=== PATIENT | female | born 1965 | race Caucasian/White ===

== ENCOUNTER 2018-06-22 14:15 | Emergency (ER) | payer MEDICAID ==
[~2018-06-22] VITALS: Ht 162.6 cm; Wt 57.1 kg
[~2018-06-22 14:15] MED LIST: BENTYL 20 MG TA20 M1 PO; CARAFATE 1 GM TA1 G1 PO; IBUPROFEN 800800 M1 PO; NORCO 5-325 TA1 EACH PO; PHENERGAN 25 MG25 M1 PO; PRINIVIL20 MG PO; PROTONIX 20 MG20 M1 PO; TIROSINT125 MCG PO; TOPAMAX 100 MG100 MG PO; VITAMIN D3400 UNIT PO; ZOFRAN4 MG PO
[2018-06-22] MEDS ORDERED: NEXIUM40 MG PO (14:49)
[2018-06-22] MEDS ORDERED: COMPAZINE10 MG PO (14:49)
[2018-06-22] MEDS ORDERED: ONDANSETRON HCL4 M2 PO ×2 (14:49→17:24)
[2018-06-22] MEDS ORDERED: AMLODIPINE BESY10 MG PO (14:50)
[2018-06-22] MEDS ORDERED: ZYRTEC10 M4 PO (14:50)
[2018-06-22 15:18] LABS: ABSOLUTE BASOPHILS 0.1 thou/uL (0.0-0.2); ABSOLUTE EOSINOPHILS 0.3 thou/uL (0.0-0.7); ABSOLUTE LYMPHOCYTES 1.6 thou/uL (0.8-5.3); ABSOLUTE MONOCYTES 0.6 thou/uL (0.0-1.2); ABSOLUTE NEUTROPHILS 4.7 thou/uL (1.6-8.1); BASOPHILS 1.2 %; EOSINOPHILS 3.8 %; HEMATOCRIT 29.7 % (37.0-47.0); HEMOGLOBIN 9.4 gm/dL (12.0-15.0); LYMPHOCYTES 21.7 %; MCH 23.9 pg (26.0-34.0); MCHC 31.6 g/dL (28.0-37.0); MCV 75.7 fL (80.0-100.0); MONOCYTES 8.2 %; MPV 8.1 fl. (7.2-11.1); NUCLEATED RBCS 0 /100WBC; POLYS 65.1 %; RBC 3.92 mil/uL (4.20-5.00); RDW-CV 19.2 % (10.5-14.5); WBC 7.3 thou/uL (4.0-11.0)
[2018-06-22 15:21] LABS: ANION GAP 11 mmol/L (7-16); BUN 18 mg/dL (7-18); CALCIUM 8.2 mg/dL (8.5-10.1); CHLORIDE 110 mmol/L (98-107); CO2 21 mmol/L (21-32); CREATININE 0.5 mg/dL (0.6-1.3); GLUCOSE 100 mg/dL (70-99); POTASSIUM 3.7 mmol/L (3.5-5.1); SODIUM 142 mmol/L (136-145)
[2018-06-22 15:32] LABS: ALBUMIN 3.5 g/dL (3.4-5.0); ALKALINE PHOSPHATASE 118 U/L (46-116); LIPASE 193 U/L (73-393); SGOT 13 U/L (15-37); SGPT 16 U/L (30-65); TOTAL BILIRUBIN 0.1 mg/dL (<0.1-1.0); TOTAL PROTEIN 6.7 g/dL (6.4-8.2); TROPONIN-I LEVEL <0.06 ng/mL (<0.06)
[2018-06-22 15:54] LABS: PLATELET COUNT* 208 thou/uL (150-400)
[2018-06-22] MEDS ORDERED: HYDROCODONE-AP1 EAC6 PO (17:23)
[2018-06-22] MEDS ORDERED: CIPRO500 MG PO (17:23)
[2018-06-22 17:48] VITALS: BP 122/69
--- NOTE | 2018-06-23 13:01 | EKG ---
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: : 1965 Requested By: Myra Mtz Order Number: [id number] MD: Peterson Carroll Measurements Intervals [place] Rate: 63 P: 70 WI: 130 QRS: 9 QRSD: 91 T: 23 QT: 439 QTc: 450 Interpretive Statements Sinus rhythm Low voltage, extremity leads Baseline wander in lead(s) III,aVF,V5 Compared to ECG 08/01/2017 12:53:29 T-wave abnormality no longer present Electronically Signed On 06-23-2018 13:01:39 CDT by Peterson Carroll [email or web address] <ELECTRONICALLY SIGNED> By: Peterson Carroll MD, FACC 06/23/18 1301 1520 1520 Peterson Carroll MD, [facility] /EPI
== END 2018-06-22 17:48 | disposition home or self-care (01) ==
LOC: M.ERS 14:15
PROVIDERS: Nurse Practitioner Family
DX: K52.9 Noninfective gastroenteritis and colitis, unspecified (principal); I10 Essential (primary) hypertension; E03.9 Hypothyroidism, unspecified; G43.909 Migraine, unspecified, not intractable, without status migrainosus; Z90.49 Acquired absence of other specified parts of digestive tract; Z90.710 Acquired absence of both cervix and uterus

== ENCOUNTER 2018-08-08 10:31 | Emergency (ER) | payer MEDICARE, MEDICAID ==
[~2018-08-08] VITALS: Ht 162.6 cm; Wt 57.6 kg
[~2018-08-08 10:31] MED LIST changes: +AMLODIPINE BESY10 MG PO; +CIPRO500 MG PO; +COMPAZINE10 MG PO; +HYDROCODONE-AP1 EAC6 PO; +NEXIUM40 MG PO; +ONDANSETRON HCL4 M2 PO; +ZYRTEC10 M4 PO
[2018-08-08] MEDS ORDERED: CENTRUM SILVER1 EAC2 PO (10:45)
[2018-08-08] MEDS ORDERED: POTASSIUM20 PO (10:45)
[2018-08-08 10:47] LABS: URINE BILIRUBIN NEGATIVE (Negative); URINE BLOOD NEGATIVE (Negative); URINE CLARITY CLEAR; URINE COLOR YELLOW; URINE GLUCOSE-RANDOM NEGATIVE (Negative); URINE KETONES NEGATIVE (Negative); URINE NITRITE-REFLEX NEGATIVE (Negative); URINE PROTEIN NEGATIVE (Negative); URINE SPECIFIC GRAVITY 1.025 (1.005-1.030); URINE UROBILINOGEN 0.2 E.U./dl (0.2-1.0)
[2018-08-08 10:50] LABS: URINE LEUKOCYTES-REFLEX 2+ (Negative)
[2018-08-08 11:09] LABS: ABSOLUTE BASOPHILS 0.1 thou/uL (0.0-0.2); ABSOLUTE EOSINOPHILS 0.3 thou/uL (0.0-0.7); ABSOLUTE LYMPHOCYTES 1.4 thou/uL (0.8-5.3); ABSOLUTE MONOCYTES 0.4 thou/uL (0.0-1.2); ABSOLUTE NEUTROPHILS 3.4 thou/uL (1.6-8.1); BASOPHILS 1.1 %; HEMATOCRIT 31.3 % (37.0-47.0); HEMOGLOBIN 9.8 gm/dL (12.0-15.0); LYMPHOCYTES 24.4 %; MCH 22.4 pg (26.0-34.0); MCHC 31.4 g/dL (28.0-37.0); MCV 71.4 fL (80.0-100.0); MONOCYTES 7.9 %; MPV 7.9 fl. (7.2-11.1); NUCLEATED RBCS 0 /100WBC; PLATELET COUNT* 393 thou/uL (150-400); POLYS 60.6 %; RBC 4.38 mil/uL (4.20-5.00); RDW-CV 19.4 % (10.5-14.5); WBC 5.5 thou/uL (4.0-11.0)
[2018-08-08 11:11] LABS: CASTS None Seen /LPF (None Seen); CRYSTALS None Seen /LPF (None Seen); MUCUS >6 Heavy strn/LPF (None Seen); SQUAMOUS 4-10 Moderate /LPF (0-3); URINE RBC 3-10 Few /HPF (0-2); URINE WBC-REFLEX 6-15 Few /HPF (0-5)
[2018-08-08 11:26] LABS: CALCIUM 8.8 mg/dL (8.5-10.1); CREATININE 0.7 mg/dL (0.6-1.3); POTASSIUM 3.1 mmol/L (3.5-5.1)
[2018-08-08 11:30] LABS: ALBUMIN 3.8 g/dL (3.4-5.0); TOTAL BILIRUBIN 0.2 mg/dL (<0.1-1.0)
[2018-08-08 11:53] LABS: ANISOCYTOSIS 2+
[2018-08-08 11:54] LABS: HYPOCHROMASIA 2+; MICROCYTES 2+
[2018-08-08 12:17] LABS: ESR (SEDRATE) 3 mm/hr (0-30)
[2018-08-08] MEDS ORDERED: MACROBID 100 M100 M1 PO (12:29)
[2018-08-08] MEDS ORDERED: MIRALAX17 GM PO (12:29)
[2018-08-08 12:36] VITALS: BP 137/89
== END 2018-08-08 12:50 | disposition home or self-care (01) ==
LOC: M.ERS 10:31
PROVIDERS: Nurse Practitioner Family
DX: K59.00 Constipation, unspecified (principal); N39.0 Urinary tract infection, site not specified; E03.9 Hypothyroidism, unspecified; I10 Essential (primary) hypertension; G43.909 Migraine, unspecified, not intractable, without status migrainosus; Z90.49 Acquired absence of other specified parts of digestive tract; Z90.710 Acquired absence of both cervix and uterus; Z86.73 Personal history of transient ischemic attack (TIA), and cerebral infarction without residual deficits

== ENCOUNTER 2019-02-10 22:21 | Inpatient (IN) | payer MEDICARE ==
[~2019-02-10] VITALS: Ht 162.6 cm; Wt 60.8 kg
--- NOTE | ~2019-02-10 | CON ---
[address] [address] CONSULTATION Name: CLAYTON MANSFIELD Room: [address] IN .R.#: [id number] Admission: 02/11/19 Attend Phys: Eliz Nick MD Discharge: Date of : 63 Report #: [id number] THIS REPORT FOR: //name// CC: FAM unknown Eliz Nick DATE OF SERVICE: 02/11/2019 ADDENDUM Consult number is [id number]. The patient has had recent workup with EGD, colonoscopy and gastric emptying test 6 weeks ago. He reports a history of colonic ischemia. The patient also has history of intermittent diarrhea and constipation and weight loss. At this time, we will obtain all records from [facility] where the patient has had a recent workup. We will make further recommendation based on the result of this workup. Meanwhile, the patient is on IV antibiotics, which we will continue. We will also continue to monitor labs. By: [id number] Rebollar MD /nt
[~2019-02-10 22:21] MED LIST changes: +CENTRUM SILVER1 EAC2 PO; +MACROBID 100 M100 M1 PO; +MIRALAX17 GM PO; +POTASSIUM20 PO
[2019-02-10 22:23] VITALS: BP 103/61
[2019-02-10 22:53] LABS: URINE BLOOD TRACE (Negative); URINE CLARITY CLEAR; URINE COLOR DARK YELLOW; URINE GLUCOSE-RANDOM NEGATIVE (Negative); URINE KETONES 1+ (Negative); URINE LEUKOCYTES-REFLEX TRACE (Negative); URINE PROTEIN 2+ (Negative); URINE SPECIFIC GRAVITY >= 1.030 (1.005-1.030)
[2019-02-10 22:57] LABS: HEMATOCRIT 47.2 % (37.0-47.0); HEMOGLOBIN 14.8 gm/dL (12.0-15.0); MCH 26.9 pg (26.0-34.0); MCHC 31.3 g/dL (28.0-37.0); MCV 85.8 fL (80.0-100.0); MPV 8.5 fl. (7.2-11.1); NUCLEATED RBCS 0 /100WBC; PLATELET COUNT* 290 thou/uL (150-400); RBC 5.51 mil/uL (4.20-5.00); RDW-CV 24.9 % (10.5-14.5); WBC 18.4 thou/uL (4.0-11.0)
[2019-02-10 22:59] LABS: ICTOTEST (BILI CONFIRMATORY) Negative (Negative); URINE BILIRUBIN 2+ (Negative); URINE NITRITE-REFLEX POSITIVE (Negative)
[2019-02-10 23:07] LABS: HYALINE CASTS >10 Many /LPF (None Seen); MUCUS 0-3 Light strn/LPF (None Seen); SQUAMOUS 4-10 Moderate /LPF (0-3)
[2019-02-10 23:07] LABS: CALCIUM 8.6 mg/dL (8.5-10.1); CREATININE 1.1 mg/dL (0.6-1.3); POTASSIUM 3.2 mmol/L (3.5-5.1)
[2019-02-10 23:08] LABS: BACTERIA-REFLEX >30 Many /HPF (None Seen); CRYSTALS None Seen /LPF (None Seen); URINE RBC 0-2 Rare /HPF (0-2); URINE WBC-REFLEX 0-5 Rare /HPF (0-5)
[2019-02-10 23:11] LABS: TOTAL BILIRUBIN 0.2 mg/dL (<0.1-1.0); TOTAL PROTEIN 7.1 g/dL (6.4-8.2)
[2019-02-10 23:26] LABS: ABSOLUTE EOSINOPHILS 0.2 thou/uL (0.0-0.7); ABSOLUTE LYMPHOCYTES 2.9 thou/uL (0.8-5.3); ABSOLUTE MONOCYTES 0.4 thou/uL (0.0-1.2); ABSOLUTE NEUTROPHILS 14.9 thou/uL (1.6-8.1)
[2019-02-10 23:27] LABS: PLATELET ESTIMATE ADEQUATE
[2019-02-10 23:28] LABS: ANISOCYTOSIS 2+; CLUMPED PLTS RARE
[2019-02-11 04:13] VITALS: BP 106/64
[2019-02-11 04:30] VITALS: BP 115/78
--- NOTE | 2019-02-11 04:30 | NUR ---
PT ADMITTED TO FLOOR PER CART ACCOMPANIED BY ER STAFF WITH BELONGINGS. ORIENTED TO ROOM AND CALL LITE. HISTORY OBTAINED AND ASSESSMENT PERFORMED,SEE ADMIT NOTES. UP WITH SBA TO BR TO VOID WITHOUT DIFFICULTY. PT CO LLQ ABD PAIN AND SLIGHT NAUSEA, RECEIVED IV PAIN MEDS PRIOR TO ARRIVAL TO FLOOR, NAUSEA MED TO BE GIVEN. TELE SR.LAC IVF PLACED ON PUMP FOR INFUSION. NPO, MOUTH SWABS GIVEN FOR COMFORT. CALL LITE IN EASY REACH, WILL CONTINUE TO MONITOR AND PROVIDE CARES NEEDED.
[2019-02-11 04:31] LABS: HEMATOCRIT 42.4 % (37.0-47.0); HEMOGLOBIN 13.3 gm/dL (12.0-15.0); MCHC 31.2 g/dL (28.0-37.0); MCV 86.6 fL (80.0-100.0); MPV 9.2 fl. (7.2-11.1); NUCLEATED RBCS 0 /100WBC; RDW-CV 25.5 % (10.5-14.5); WBC 10.7 thou/uL (4.0-11.0)
[2019-02-11 04:34] LABS: CALCIUM 8.5 mg/dL (8.5-10.1); POTASSIUM 3.6 mmol/L (3.5-5.1)
[2019-02-11 04:48] LABS: MAGNESIUM 2.3 mg/dL (1.8-2.4); PHOSPHORUS* 4.9 mg/dL (2.5-4.9)
[2019-02-11 04:54] LABS: PLATELET COUNT* 195 thou/uL (150-400)
[2019-02-11 05:24] LABS: ABSOLUTE LYMPHOCYTES 1.1 thou/uL (0.8-5.3); ABSOLUTE NEUTROPHILS 9.6 thou/uL (1.6-8.1); ANISOCYTOSIS 1+; HYPOCHROMASIA Occasional; OVALOCYTES 1+; PLATELET ESTIMATE ADEQUATE; POIKILOCYTOSIS 1+
[2019-02-11 07:29] LABS: ABSOLUTE LYMPHOCYTES 0.7 thou/uL (0.8-5.3); ABSOLUTE MONOCYTES 0.5 thou/uL (0.0-1.2); ABSOLUTE NEUTROPHILS 6.6 thou/uL (1.6-8.1); BASOPHILS 0.3 %; HEMATOCRIT 39.4 % (37.0-47.0); HEMOGLOBIN 12.8 gm/dL (12.0-15.0); LYMPHOCYTES 8.9 %; MCH 27.7 pg (26.0-34.0); MCHC 32.6 g/dL (28.0-37.0); MCV 85.1 fL (80.0-100.0); MONOCYTES 5.9 %; MPV 8.3 fl. (7.2-11.1); NUCLEATED RBCS 0 /100WBC; PLATELET COUNT* 182 thou/uL (150-400); POLYS 84.9 %; RBC 4.63 mil/uL (4.20-5.00); RDW-CV 24.5 % (10.5-14.5); WBC 7.7 thou/uL (4.0-11.0)
--- NOTE | 2019-02-11 07:35 | NUR ---
PT RESTING QUIETLY AFTER ADMIT. LAB NOTIFIED OF NEEDED LABWORK, DRAWN. TO HAVE ABD XRAY TODAY. IV MORPHINE GIVEN THIS MORNING FOR CO ABD PAIN 9/10 ON SCALE WITH RELIEF THAT "TAKES THE EDGE OFF" PER PT. IV ABX PLACED ON PUMP FOR INFUSION. REMAINS NPO, SWABS GIVEN. GI TO SEE PT, SURGERY CONSULTED AND SAW PT IN ER, WILL CONTINUE TO FOLLOW LAB TRENDS. ABLE TO USE CALL LITE AND MAKE NEEDS KNOWN.
[2019-02-11 07:41] LABS: CALCIUM 8.2 mg/dL (8.5-10.1); CREATININE 0.9 mg/dL (0.6-1.3); POTASSIUM 3.9 mmol/L (3.5-5.1)
[2019-02-11 08:30] VITALS: BP 106/72
[2019-02-11 12:00] VITALS: BP 105/65
--- NOTE | 2019-02-11 15:17 | NUR ---
I.S. PROVIDED TO PATIENT AND INSTRUCTED ON HOW TO USE. PATIENT GIVEN DUCOLAX AND MAG CITRATE. NO BM OF YET. WILL CONTINUE WITH PLAN OF CARE.
[2019-02-11 16:00] VITALS: BP 119/72
[2019-02-11 16:48] LABS: AMP/METHAMP Negative (Negative); BARBITURATES Negative (Negative); BENZODIAZEPINES Negative (Negative); COCAINE Negative (Negative); METHADONE Negative (Negative); OPIATES POSITIVE (Negative); PCP Negative (Negative); THC POSITIVE (Negative)
--- NOTE | 2019-02-11 18:27 | NUR ---
PATIENT HAS BEEN A/O X 4 THIS SHIFT. 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 PATIENT HAS HAD COMPLAINTS OF ABDOMINAL PAIN, MEDICATED WITH IV PAIN MEDS, FAIR RELIEF NOTED. PATIENT WITH NAUSEA THIS SHIFT, UNRELIEVED BY ZOFRAN, PHENERGAN GIVEN WITH FAIR EFFECT. CONTINUES ON IV ANTIBIOTICS AND IV FLUIDS. UP AD JOSEFA TO BATHROOM. GIVEN DUCOLAX AND MAG CITRATE TO HELP FACILITATE BM, NONE NOTED OF NOW. STARTED ON CLEAR LIQUIDS, NOT TOLERATING, PATIENT BACK TO ICE CHIPS. LACTIC ACID TRENDING DOWN. SEEN BY GI AND SURGERY THIS SHIFT. LOW GRADE TEMP NOTED, PROVIDED I.S AND INSTRUCTED ON USE. HOURLY ROUNDING COMPLETED. CALL LIGHT WITHIN REACH. WILL CONTINUE WITH PLAN OF CARE.
[2019-02-11 20:47] VITALS: BP 130/91
[2019-02-12 00:02] VITALS: BP 116/72
[2019-02-12 04:03] VITALS: BP 103/52
--- NOTE | 2019-02-12 05:08 | NUR ---
ASSESSMENT: PT REMAIN ALERT AND ORIENT TIMES FOUR. UP AD JOSEFA TO BR AND ROOM. DOES HAVE A LOW GRADE TEMP, I-S ENCOURAGED. DID NOT WANT TYLENOL ORDER, STATES THAT IT DOES NOT WORK. UP WITH SOFT, LOOSE STOOL A RESULT OF MAG CITRATE AND DUCLOLAX. C/O ABD PAIN AND CRAMPING. PRN PAIN MEDS GIVEN WITH PARTIAL RELIEF PER PT. SR-ST PER MONITOR. WILL CONTINUE TO MONITOR.
[2019-02-12 07:30] LABS: HEMATOCRIT 32.8 % (37.0-47.0); HEMOGLOBIN 10.9 gm/dL (12.0-15.0); MCH 27.4 pg (26.0-34.0); MCHC 33.3 g/dL (28.0-37.0); MCV 82.2 fL (80.0-100.0); MPV 8.1 fl. (7.2-11.1); RDW-CV 24.8 % (10.5-14.5); WBC 6.4 thou/uL (4.0-11.0)
[2019-02-12 07:41] LABS: CALCIUM 7.6 mg/dL (8.5-10.1); CREATININE 0.6 mg/dL (0.6-1.3); MAGNESIUM 2.3 mg/dL (1.8-2.4); PHOSPHORUS* 2.3 mg/dL (2.5-4.9); POTASSIUM 3.1 mmol/L (3.5-5.1)
[2019-02-12 13:46] VITALS: BP 103/65
--- NOTE | 2019-02-12 15:17 | CON ---
[address] [address] CONSULTATION Name: CLAYTON MANSFIELD Room: [address] IN .#: [id number] Admission: 02/11/19 Attend Phys: Eliz Nick MD Discharge: Date of : 63 Report #: [id number] THIS REPORT FOR: //name// CC: FAM unknown Volodymyr Nick DICTATED BY: Soraya Gallagher [facility] DATE OF SERVICE: 02/11/2019 Please note at the time of this dictation, the patient was seen and physically examined by myself. REASON FOR CONSULTATION: Colitis. HISTORY OF PRESENT ILLNESS: This is a 53-year-old female who presented to the Emergency Room with having severe left-sided abdominal pain, nausea, vomiting and constipation. She has not had a bowel movement since this past Saturday and her pain has progressively gotten worse. The patient states normally she does not take anything for her bowels, but she does take dicyclomine 20 mg on a regular basis due to abdominal discomfort. The patient states she had an EGD and colonoscopy about 4-6 weeks ago at [facility]. They did biopsies for her intermittent diarrhea that she will have, but she has not heard the results yet and has had no followup since that time. The patient also mentions that she has chronic ongoing nausea. She does not take anything for that. She was told that she has gastroparesis as well. The patient states when this pain became significantly severe, she had a lot of nausea and vomiting, denied any bright red blood or any coffee coffee-ground emesis with the vomiting. She has had no further vomiting since she has been here. She denies any fever or chills as well. ALLERGIES: No known drug allergies. MEDICATIONS FROM HOME: Lisinopril, dicyclomine, Topamax, Phenergan, vitamin D, pantoprazole, Carafate, Compazine, Nexium, Zyrtec, amlodipine, potassium. PAST MEDICAL HISTORY: Significant for hypertension, hypothyroidism, history of diverticulitis in the past, history of bowel obstruction in the past, history of gastric ulcers, H. pylori, migraines, ischemic colitis and a TIA back in 2009. PAST SURGICAL HISTORY: She has had a cholecystectomy. She has had colon surgery. She has had a Madi-en-Y revision x 3, hernia repair, hysterectomy and tonsillectomy. FAMILY HISTORY: Maternal [place] [address] CONSULTATION Name: CLAYTON MANSFIELD Room: [address]#: [id number] Admission: 02/11/19 Attend Phys: Eliz Nick MD Discharge: Date of : 63 Report #: [id number] SOCIAL HISTORY: Denies any alcohol, tobacco or illegal drug use at this time. REVIEW OF SYSTEMS: Twelve-point review of systems is essentially negative except what is mentioned in the HPI. PHYSICAL EXAMINATION: VITAL SIGNS: Temperature 37.1, pulse 83, respirations 18, blood pressure 115/78. HEART: Regular rate and rhythm. LUNGS: Diminished, but clear. ABDOMEN: Soft, positive bowel sounds in all 4 quadrants with tenderness noted mainly in the left and transverse midline. LABORATORY DATA: White count on admission was 18.4, she is down to 7.7; hemoglobin is 12.8; platelets 182. BUN is 23, creatinine 0.9, GFR is 65. Her lipase is 278. It is noted that she has UTI. Total bilirubin is 0.2, alkaline phosphatase 221, ALT 35, AST is 31. CT of the abdomen and pelvis shows small hiatal hernia, marked distention in the ascending and transverse colon with thickening in the descending, splenic and transverse colon. IMPRESSION: 1. Abdominal pain, likely ischemic colitis. 2. Abnormal CT. 3. Weight loss of 15 pounds. 4. Nausea. 5. Constipation. 6. Elevated alkaline phosphatase. 7. History of gastroparesis per patient. 8. History of gastric ulcers in the past. PLAN: 1. We will continue her antibiotics, Flagyl and Zosyn. 2. Obtain her records from [place] for her EGD colon and gastric emptying test that she states have been done recently with path. 3. Obtain labs for GGTP to evaluate alkaline phosphatase. 4. We will give her 4 Dulcolax tablets now followed with some magnesium citrate to get her bowels to go. 5. Further recommendations to be made once we have her records from previous. Thank you for allowing us to participate in this patient's care. Please do not hesitate to call with any questions in regard to this consult. <ELECTRONICALLY SIGNED> By: Hollis Rebollar MD 02/12/19 1517 [id number] Rebollar MD /nt
--- NOTE | 2019-02-12 15:25 | NUR ---
ASSESSMENT COMPLETE. PT ALERT AND ORIENTED X4. PT SLEPT MOST OF THE DAY. PT GIVEN CLEAR LIQUIDS FOR LUNCH BUT DID NOT EAT. PT REPORTING CONSTANT NAUSEA WITH SOME RELIEF FROM PHENERGAN. GI AND SURGERY FOLLOWING AT THIS TIME. PT IS UP AD JOSEFA TO BATHROOM. IV FLUIDS INFUSING. FLAGYL AND ZOSYN GIVEN ORDERED. MIRALAX STARTED BID. GI WAITING ON RECORDS FROM [facility] FOR GASTRIC EMPTYING. PT IS NSR ON TELE MONITOR, VSS. SEE ASSESSMENT AND VITALS FOR OTHER DETAILS. CALL LIGHT WITHIN REACH, WILL CONTINUE PLAN OF CARE
[2019-02-12 17:31] VITALS: BP 114/82
[2019-02-13] VITALS: BP 122/82
[2019-02-13 03:58] LABS: ABSOLUTE EOSINOPHILS 0.1 thou/uL (0.0-0.7); ABSOLUTE LYMPHOCYTES 1.6 thou/uL (0.8-5.3); ABSOLUTE MONOCYTES 0.6 thou/uL (0.0-1.2); ABSOLUTE NEUTROPHILS 3.8 thou/uL (1.6-8.1); BASOPHILS 0.6 %; EOSINOPHILS 2.4 %; HEMATOCRIT 30.3 % (37.0-47.0); HEMOGLOBIN 10.2 gm/dL (12.0-15.0); LYMPHOCYTES 26.3 %; MCH 27.5 pg (26.0-34.0); MCHC 33.8 g/dL (28.0-37.0); MCV 81.6 fL (80.0-100.0); MONOCYTES 10.1 %; MPV 8.5 fl. (7.2-11.1); NUCLEATED RBCS 0 /100WBC; PLATELET COUNT* 159 thou/uL (150-400); POLYS 60.6 %; RBC 3.72 mil/uL (4.20-5.00); RDW-CV 24.2 % (10.5-14.5); WBC 6.2 thou/uL (4.0-11.0)
[2019-02-13 04:00] VITALS: BP 134/88
--- NOTE | 2019-02-13 04:04 | NUR ---
ASSESSMENT: PT STATE THAT SHE FEELS A LITTLE BETTER. PAIN RELIEF PARTIAL WITH FENTANYL, NAUSEA IS LESSENED WITH PHENERGREN IVPB. SR-ST PER MONITOR. UP WITH STEADY GAIT. DENIES DIZZINESS. WILL CONTINUE TO MONITOR.
[2019-02-13 04:24] LABS: CALCIUM 7.9 mg/dL (8.5-10.1); CREATININE 0.6 mg/dL (0.6-1.3); POTASSIUM 3.3 mmol/L (3.5-5.1)
[2019-02-13 07:50] VITALS: BP 131/81
[2019-02-13 12:00] VITALS: BP 163/99
--- NOTE | 2019-02-13 15:40 | NUR ---
AGILE JAVA DEVELOPER SPOKE TO THE PATIENT TO DISCUSS HER HOME SITUATION DISCHARGE PLANNING, AND TO INFORM OF THE ROLE OF CM. PATIENT ALERT, ORIENTED, AND INDEPENDENT WITH ADL'S. PATIENT RESIDES AT HOME WITH HER MOTHER. PATIENT USES 0 DME. PATIENT HAS NO HX OF HH OR SNF, AND PLANS TO RETURN HOME AT D/C. PATIENT DOES NOT ANTICIPATE ANY D/C PLANNING NEEDS. PATIENT'S PCP IS DR JANAY WILKINS AT [facility]. CM WILL REMAIN AVIALABLE TO ASSIST AND FOLLOW NEEDED.
--- NOTE | 2019-02-13 15:49 | NUR ---
ASSESSMENT COMPLETE. PT ALERT AND ORIENTED X4. REPORTS NAUSEA AND ABD PAIN THROUGHOUT THE DAY. GI AND SURGERY CONSULTED AT THIS TIME. NSR ON TELE MONITOR, VSS. PT IS UP AD JOSEFA WITH STEADY GAIT. SEE ASSESSMENT AND VITALS FOR OTHER DETAILS, CALL LIGHT WITHIN REACH. WILL CONTINUE PLAN OF CARE
[2019-02-13 16:00] VITALS: BP 161/105
[2019-02-14 04:35] VITALS: BP 133/91
--- NOTE | 2019-02-14 05:08 | NUR ---
PATIENT SLEPT WELL DURING THIS SHIFT. PT UP TO BATHROOM WITH STEADY GAIT. PT REQUESTS FENTANYL 50MCG IV Q3H ORDERED. PT WITH FLUIDS AND ANTIBIOTICS INFUSING PER DR ORDER IN LT AC. PT IS ON ROOM AIR. PT DENIES NAUSEA ON THIS SHIFT. PT IS SINUS RHYTHM ON THE ASSISTANT WOMENS VOLLEYBALL COACH. FREQUENTLY USED ITEMS AND CALL LIGHT WITHIN REACH. SIDERAILS UPX2. WILL CONTINUE TO MONITOR.
[2019-02-14 08:00] VITALS: BP 129/106
[2019-02-14 08:19] LABS: ABSOLUTE BASOPHILS 0.1 thou/uL (0.0-0.2); ABSOLUTE EOSINOPHILS 0.2 thou/uL (0.0-0.7); ABSOLUTE LYMPHOCYTES 1.9 thou/uL (0.8-5.3); ABSOLUTE MONOCYTES 0.4 thou/uL (0.0-1.2); BASOPHILS 1.1 %; EOSINOPHILS 2.7 %; HEMATOCRIT 32.6 % (37.0-47.0); HEMOGLOBIN 10.8 gm/dL (12.0-15.0); MCH 27.1 pg (26.0-34.0); MONOCYTES 7.1 %; MPV 8.2 fl. (7.2-11.1); NUCLEATED RBCS 0 /100WBC; PLATELET COUNT* 169 thou/uL (150-400); POLYS 54.1 %; RBC 3.97 mil/uL (4.20-5.00); RDW-CV 23.4 % (10.5-14.5); WBC 5.6 thou/uL (4.0-11.0)
[2019-02-14 08:40] LABS: ALBUMIN 2.7 g/dL (3.4-5.0); CALCIUM 7.7 mg/dL (8.5-10.1); CREATININE 0.6 mg/dL (0.6-1.3); TOTAL BILIRUBIN 0.4 mg/dL (<0.1-1.0); TOTAL PROTEIN 5.2 g/dL (6.4-8.2)
[2019-02-14 08:41] LABS: POTASSIUM 2.9 mmol/L (3.5-5.1)
[2019-02-14 12:34] VITALS: BP 150/96
--- NOTE | 2019-02-14 18:00 | NUR ---
PT REQUESTING TO HAVE SOLID FOOD. SEE 'S PROGRESS NOTE FROM TODAY 02/14. OK TO ADVANCE DIET TOLERATED. PT GIVEN A REGULAR TRAY AND DIET CHANGED IN COMPUTER. WILL CONTINUE TO MONITOR.
[2019-02-14 18:05] VITALS: BP 143/102
[2019-02-15 00:55] VITALS: BP 146/101
[2019-02-15 04:20] VITALS: BP 144/103
--- NOTE | 2019-02-15 05:29 | NUR ---
PATIENT SLEPT WELL DURING THIS SHIFT. PT'S IV CAME OUT AND DID NOT WANT ANOTHER ONE RESTARTED. SPOKE WITH DR ANGEL AND HE DID NOT WANT IV ANTIBIOTICS CHANGED TO PO AT THIS TIME. PT STILL DID NOT WANT NEW IV. PT DID NOT CALL FOR PAIN MEDICATION. PT UP TO BATHROOM WITH STEADY GAIT. DENIES NEEDS AT THIS TIME. FREQUENTLY USED ITEMS AND CALL LIGHT WITHIN RREACH. SIDERAILS UPX2. WILL CONTINUE TO MONITOR.
[2019-02-15 08:00] VITALS: BP 137/94
[2019-02-15 14:08] VITALS: BP 137/94
--- NOTE | 2019-02-15 14:38 | NUR ---
DISCHARGE NOTE - ALL BELONGINGS SENT WITH PT. REVIEWED INSTRUCTIONS. NO QUESTIONS. IV REMOVED.
== END 2019-02-15 14:35 | disposition home or self-care (01) | DRG 871 ==
LOC: M.ERS 22:21 → M.3W 02-11 00:37 → M.TBA-ER 02-11 00:37 → M.3W 02-11 04:33
PROVIDERS: Emergency Medicine; Internal Medicine; Surgery; ADMIT Internal Medicine
DX: A41.9 Sepsis, unspecified organism (principal); K55.039 Acute (reversible) ischemia of large intestine, extent unspecified; A04.9 Bacterial intestinal infection, unspecified; K55.1 Chronic vascular disorders of intestine; E87.6 Hypokalemia; K58.9 Irritable bowel syndrome, unspecified; F12.90 Cannabis use, unspecified, uncomplicated; E03.9 Hypothyroidism, unspecified; K59.00 Constipation, unspecified; G43.909 Migraine, unspecified, not intractable, without status migrainosus; K31.84 Gastroparesis; R63.4 Abnormal weight loss; I10 Essential (primary) hypertension; K57.90 Diverticulosis of intestine, part unspecified, without perforation or abscess without bleeding; Z86.73 Personal history of transient ischemic attack (TIA), and cerebral infarction without residual deficits; Z90.710 Acquired absence of both cervix and uterus; Z90.49 Acquired absence of other specified parts of digestive tract; Z68.23 Body mass index [BMI] 23.0-23.9, adult

== ENCOUNTER 2020-12-14 11:02 | Inpatient (IN) | payer MEDICARE ==
[~2020-12-14] VITALS: Ht 160 cm; Wt 48.6 kg
--- NOTE | ~2020-12-14 | PROC ---
[address] [address] PROCEDURE REPORT Name: CLAYTON BARLOW Room: [address] IN ..#: [id number] Admission: 12/14/20 Attend Phys: Eliz Nick MD Discharge: 12/20/20 Date of : 63 Report #: [id number] THIS REPORT FOR: cc: Physician not on staff Physician not on staff ~ [facility],Medical Records Staff For GI report, please see the Provation report in Perceptive 7 content. By: [id number] Records Staff [facility] /MAMADOU
[~2020-12-14 11:02] MED LIST changes: +BENTYL 10 MG CA10 M1 PO; -BENTYL 20 MG TA20 M1 PO
[2020-12-14 11:20] VITALS: BP 108/67
[2020-12-14 11:59] LABS: HEMATOCRIT 41.7 % (37.0-47.0); HEMOGLOBIN 13.7 gm/dL (12.0-15.0); MCH 29.3 pg (26.0-34.0); MCHC 32.9 g/dL (28.0-37.0); MCV 89.1 fL (80.0-100.0); MPV 8.4 fl. (7.2-11.1); NUCLEATED RBCS 0 /100WBC; PLATELET COUNT* 291 thou/uL (150-400); RBC 4.68 mil/uL (4.20-5.00); RDW-CV 13.5 % (10.5-14.5); WBC 12.4 thou/uL (4.0-11.0)
[2020-12-14 12:13] LABS: CALCIUM 9.7 mg/dL (8.5-10.1); CREATININE 0.7 mg/dL (0.6-1.3); POTASSIUM 4.2 mmol/L (3.5-5.1)
[2020-12-14 12:18] LABS: ALBUMIN 4.4 g/dL (3.4-5.0); TOTAL BILIRUBIN 0.3 mg/dL (<0.1-1.0); TOTAL PROTEIN 7.6 g/dL (6.4-8.2)
[2020-12-14 12:54] LABS: URINE BILIRUBIN NEGATIVE (Negative); URINE BLOOD NEGATIVE (Negative); URINE CLARITY CLEAR; URINE COLOR YELLOW; URINE GLUCOSE-RANDOM NEGATIVE (Negative); URINE KETONES 1+ (Negative); URINE LEUKOCYTES-REFLEX NEGATIVE (Negative); URINE NITRITE-REFLEX NEGATIVE (Negative); URINE PROTEIN NEGATIVE (Negative); URINE SPECIFIC GRAVITY 1.015 (1.005-1.030); URINE UROBILINOGEN 0.2 E.U./dl (0.2-1.0)
[2020-12-14 12:56] LABS: ABSOLUTE EOSINOPHILS 0.1 thou/uL (0.0-0.7); ABSOLUTE LYMPHOCYTES 1.7 thou/uL (0.8-5.3); ABSOLUTE MONOCYTES 0.4 thou/uL (0.0-1.2); ABSOLUTE NEUTROPHILS 10.2 thou/uL (1.6-8.1); PLATELET ESTIMATE ADEQUATE
[2020-12-14 14:57] LABS: AMP/METHAMP Negative (Negative); BARBITURATES Negative (Negative); BENZODIAZEPINES Negative (Negative); COCAINE Negative (Negative); METHADONE Negative (Negative); OPIATES POSITIVE (Negative); PCP Negative (Negative); THC POSITIVE (Negative)
[2020-12-14 15:00] VITALS: BP 149/93
[2020-12-14 15:10] VITALS: BP 109/67
[2020-12-14] MEDS ORDERED: NORCO5 PO (16:23)
[2020-12-14] MEDS ORDERED: BENADRYL25 MG PO (16:24)
[2020-12-14] MEDS ORDERED: LYRICA 75 MG CA75 MG PO (16:25)
[2020-12-14] MEDS ORDERED: TRAZODONE HCL50 MG PO (16:25)
[2020-12-14] MEDS ORDERED: BACLOFEN 10MG T10 MG PO (16:26)
[2020-12-14] MEDS ORDERED: MIRTAZAPINE7.5 MG PO (16:27)
--- NOTE | 2020-12-14 18:08 | NUR ---
Patient arrived from ER this afternoon. Patient settled to room and history, assessment and bitals completed and documented. Patient has had complaints of abdominal pain and nausea. Patient has had no vomiting or diarrhea since arrival to room. Patient is up ad fadi in room. Patient is NPO. Patient denies any needs at this time. Call light within reach.
[2020-12-14 20:00] VITALS: BP 104/67
[2020-12-15] VITALS: BP 105/69
[2020-12-15 05:00] LABS: CALCIUM 8.5 mg/dL (8.5-10.1); CREATININE 0.6 mg/dL (0.6-1.3); PHOSPHORUS* 2.7 mg/dL (2.5-4.9); POTASSIUM 3.9 mmol/L (3.5-5.1)
[2020-12-15 05:08] LABS: MCH 29.8 pg (26.0-34.0); MCHC 33.4 g/dL (28.0-37.0); MCV 89.4 fL (80.0-100.0); MPV 8.6 fl. (7.2-11.1); RBC 3.7 mil/uL (4.20-5.00); RDW-CV 13.3 % (10.5-14.5); WBC 7.1 thou/uL (4.0-11.0)
--- NOTE | 2020-12-15 07:38 | NUR ---
Alert and oriented x 4. Vitals are stable,roomair sat 96-99%. Bowels are active and she has a gastric tube called a thi button, at this time she isn't having anything through it or have anything orally. She has had pain and nausea meds every 4 hours. IV benadryl ordered for sleep. She did sleep intermittenly.
[2020-12-15 08:00] VITALS: BP 125/80
--- NOTE | 2020-12-15 12:13 | NUR ---
Pt is A&O. Resides at home with family. Independent. No DME. Pt states that she does have a tube feed pump. Pt states that she started tube feeds in August 2020, anticipates that she will need for a year. Hx of [facility]. No hx of SNF. Goal is home at dc, no needs anticipated, Pt stated that she will not need HH. GI following for SBO.
[2020-12-15 15:50] VITALS: BP 132/77
--- NOTE | 2020-12-15 18:36 | NUR ---
PT HAS BEEN NPO ALL DAY DID HAVE XRAYS COMPLETED, AND WILL HAVE TESTING DONE TOMORROW SO WILL BE NPO AFTER MIDNIGHT. VSS AFEBRILE. MIDLINE IN LEFT UPPER ARM FLUSHES WELL, IV FLUIDS CONTINUE. PAIN MEDICATIONS CHANGED AND HYDROMORPHONE WORKS BETTER CONTROLLING HER PAIN. WILL CONTINUE TO MONITOR PLAN OF CARE.
[2020-12-15 20:30] VITALS: BP 150/92
[2020-12-16 04:30] VITALS: BP 135/76
[2020-12-16 04:40] LABS: HEMATOCRIT 32.6 % (37.0-47.0); HEMOGLOBIN 11.1 gm/dL (12.0-15.0); MCH 30.1 pg (26.0-34.0); MCHC 34.2 g/dL (28.0-37.0); MCV 88.1 fL (80.0-100.0); MPV 8.5 fl. (7.2-11.1); RBC 3.7 mil/uL (4.20-5.00); RDW-CV 13.2 % (10.5-14.5); WBC 6.6 thou/uL (4.0-11.0)
[2020-12-16 05:00] LABS: ALBUMIN 3.2 g/dL (3.4-5.0); CALCIUM 9.1 mg/dL (8.5-10.1); CREATININE 0.5 mg/dL (0.6-1.3); MAGNESIUM 1.7 mg/dL (1.8-2.4); POTASSIUM 3.9 mmol/L (3.5-5.1); TOTAL BILIRUBIN 0.3 mg/dL (<0.1-1.0); TOTAL PROTEIN 5.6 g/dL (6.4-8.2)
--- NOTE | 2020-12-16 06:41 | NUR ---
Alert and oriented x 4. She has been more nauseated this shift. Zofran did not help and she was dry heaving. IV phenergan was given and this did help. Vital signs are stable. Pain meds requested x 2, and tylenol for headache. She has had nothing by mouth since midnight. This am MG+ is low and bag is infusing. She did sleep for a long while after IV phenergan.
[2020-12-16 08:15] VITALS: BP 145/95
--- NOTE | 2020-12-16 12:42 | EKG ---
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: : 1965 Requested By: Devin Menard Order Number: [id number] Reading MD: Everardo Silverio Measurements Intervals [place] Rate: 68 P: 73 RI: 131 QRS: -2 QRSD: 93 T: 63 QT: 414 QTc: 441 Interpretive Statements Sinus rhythm Borderline low voltage, extremity leads Compared to ECG 06/22/2018 15:20:14 No significant changes Electronically Signed On 12-16-2020 12:42:10 CARD HANGER by Everardo Silverio [email or web address] <ELECTRONICALLY SIGNED> By: Everardo Silverio MD, [facility] 12/16/20 1242 0 0 Everardo Silverio MD, [facility] /EPI
--- NOTE | 2020-12-16 14:00 | NUR ---
ABD SERIES SHOW SBO RESOLVING. STILL NPO. NO DISCHARGE NEEDS ANTICIPATED.
--- NOTE | 2020-12-16 18:21 | NUR ---
Pt remained A&Ox x4 for entire shift. Vital signs stable. Pt pleasant with staff. Pt complains of nausea and abdominal pain. Pt given meds per DEC. Pt off floor for most of the afternoon for EGD. Bed in low position, call light within reach.
[2020-12-16 21:17] VITALS: BP 145/96
[2020-12-17 00:06] VITALS: BP 128/86
[2020-12-17 04:32] VITALS: BP 110/64
[2020-12-17 05:16] LABS: HEMATOCRIT 34.4 % (37.0-47.0); HEMOGLOBIN 11.9 gm/dL (12.0-15.0); MCH 30.2 pg (26.0-34.0); MCHC 34.6 g/dL (28.0-37.0); MCV 87.4 fL (80.0-100.0); RBC 3.94 mil/uL (4.20-5.00); RDW-CV 13.7 % (10.5-14.5); WBC 6.6 thou/uL (4.0-11.0)
[2020-12-17 05:32] LABS: ALBUMIN 3.3 g/dL (3.4-5.0); CALCIUM 9.1 mg/dL (8.5-10.1); CREATININE 0.7 mg/dL (0.6-1.3); MAGNESIUM 1.9 mg/dL (1.8-2.4); PHOSPHORUS* 3.1 mg/dL (2.5-4.9); POTASSIUM 3.7 mmol/L (3.5-5.1); TOTAL BILIRUBIN 0.4 mg/dL (<0.1-1.0); TOTAL PROTEIN 5.7 g/dL (6.4-8.2)
[2020-12-17 07:15] VITALS: BP 119/78
--- NOTE | 2020-12-17 07:49 | NUR ---
PT A&OX4, VSS ON RA, IV FLUIDS INFUSING ORDERED, TUBE FEEDING ADMINISTERED OVERNIGHT, PT UP AD JOSEFA, IV PAIN AND NAUSEA MEDS REQUESTED AND GIVEN ORDERED. REPORT GIVEN AND CARE TRANSFERED TO DAY SHIFT NURSE AT APPROX 0720.
[2020-12-17 11:45] VITALS: BP 118/61
[2020-12-17 15:37] VITALS: BP 115/70
--- NOTE | 2020-12-17 17:01 | NUR ---
PT REMAINED ALERT AND ORIENTED. PT C/O PAIN AND NAUSEA, MEDS GIVEN ORDERED. PT RESTING IN BED AND EDUCATED ON USING CALL LIGHT WHEN NEEDING ASSISTANCE.
[2020-12-17 19:48] VITALS: BP 122/80
[2020-12-18 03:37] LABS: HEMOGLOBIN 10.9 gm/dL (12.0-15.0); MCH 30.2 pg (26.0-34.0); MCV 88.8 fL (80.0-100.0); MPV 8.1 fl. (7.2-11.1); RBC 3.6 mil/uL (4.20-5.00); RDW-CV 13.5 % (10.5-14.5); WBC 5.6 thou/uL (4.0-11.0)
[2020-12-18 03:48] LABS: CALCIUM 8.5 mg/dL (8.5-10.1); CREATININE 0.6 mg/dL (0.6-1.3); MAGNESIUM 1.7 mg/dL (1.8-2.4); POTASSIUM 3.8 mmol/L (3.5-5.1); TOTAL BILIRUBIN 0.4 mg/dL (<0.1-1.0); TOTAL PROTEIN 5.3 g/dL (6.4-8.2)
--- NOTE | 2020-12-18 04:34 | NUR ---
PT A&OX4, VSS ON ROOM AIR, IV FLUIDS INFUSING ORDERED, OVERNIGHT TUBE FEEDING ADMINISTERED, IV PAIN MED REQUESTED AND GIVEN ORDERED, NO C/O NAUSEA OR VOMITING THIS SHIFT. WILL CONTINUE TO MONITOR.
[2020-12-18 07:05] VITALS: BP 115/71
[2020-12-18 16:00] VITALS: BP 114/77
--- NOTE | 2020-12-18 16:22 | NUR ---
pt remained alert and oriented. pt resting in bed. pain and nausea meds given as ordered. call light in reach.
[2020-12-18 19:30] VITALS: BP 128/89
[2020-12-19 04:08] VITALS: BP 132/82
--- NOTE | 2020-12-19 04:54 | NUR ---
PT A&OX4, VSS ON ROOM AIR, PT UP AD JOSEFA, IV SALINE LOCKED, TUBE FEEDING BE ADMINISTERED ORDERED, IV PAIN MEDS AND ANTIEMETIC MEDS REQUESTED AND GIVEN ORDERED. PT SLEEPING WELL THIS SHIFT. WILL CONTINUE TO MONITOR.
[2020-12-19 05:20] LABS: HEMATOCRIT 35.7 % (37.0-47.0); MCH 29.8 pg (26.0-34.0); MCHC 33.8 g/dL (28.0-37.0); MCV 88.2 fL (80.0-100.0); MPV 8.4 fl. (7.2-11.1); RBC 4.04 mil/uL (4.20-5.00); RDW-CV 13.7 % (10.5-14.5); WBC 5.2 thou/uL (4.0-11.0)
[2020-12-19 05:34] LABS: ALBUMIN 3.4 g/dL (3.4-5.0); CALCIUM 8.3 mg/dL (8.5-10.1); CREATININE 0.7 mg/dL (0.6-1.3); POTASSIUM 3.7 mmol/L (3.5-5.1); TOTAL BILIRUBIN 0.4 mg/dL (<0.1-1.0)
[2020-12-19 08:35] VITALS: BP 107/67
--- NOTE | 2020-12-19 13:00 | NUR ---
UP WALKING IN HALLS WITH VISITOR. PER NURSING, ABDOMEN IS SOFTLY DISTENDED. NO OBSTRUCIION IDENTIFIED ON ABD.XRAY. HOME POSSIBLY TOMORROW.
[2020-12-19 16:31] VITALS: BP 141/91
--- NOTE | 2020-12-19 19:02 | NUR ---
PT ALERT AND ORIENTED. PRN MEDS GIVEN FOR PAIN. PT HAD A VISITOR AT BEDSIDE. TOLERATING PO INTAKE. NO BM TODAY. ABDOMEN RAMINS DISTENDED. PT FREQUENTLY COMPLAINS OF PAIN. PASSING FLATUS. WILL CONTINUE TO MONITOR. LEFT UPPER ARM MIDLINE IN PLACE AND IS S/L. WILL CONTINUE TO MONITOR.
[2020-12-20 05:55] LABS: HEMATOCRIT 41.5 % (37.0-47.0); HEMOGLOBIN 13.8 gm/dL (12.0-15.0); MCH 29.5 pg (26.0-34.0); MCHC 33.2 g/dL (28.0-37.0); MCV 88.9 fL (80.0-100.0); RBC 4.66 mil/uL (4.20-5.00); RDW-CV 13.4 % (10.5-14.5); WBC 6.4 thou/uL (4.0-11.0)
[2020-12-20 06:11] LABS: CALCIUM 8.8 mg/dL (8.5-10.1); CREATININE 0.7 mg/dL (0.6-1.3); MAGNESIUM 2.1 mg/dL (1.8-2.4); POTASSIUM 4.1 mmol/L (3.5-5.1); TOTAL BILIRUBIN 0.3 mg/dL (<0.1-1.0); TOTAL PROTEIN 7.3 g/dL (6.4-8.2)
[2020-12-20 07:05] VITALS: BP 120/83
--- NOTE | 2020-12-20 07:11 | NUR ---
PATIENT HAS SLEPT WELL THROUGHOUT MOST OF THE NIGHT. VSS ON RA. MEDICATIONS GIVEN ORDERED AND CHARTED. PATIENT RECEIVED TUBE FEEDINGS DURING THE NIGHT @ 70ML/HR. LEFT UPPER ARM MIDLINE-SL. NO BM DURING SHIFT. PATIENT EDUCATED ON TRYING TO TAPER IV PAIN MEDICATION. PATIENT INSTRUCTED TO USE CALL LIGHT WHEN NEEDING ASSISTANCE. HOURLY ROUNDS MADE. WILL CONTINUE WITH PLAN OF CARE AND NURSING TO MONITOR.
[2020-12-20] MEDS ORDERED: NEURONTIN100 MG PO (08:32)
[2020-12-20] MEDS ORDERED: MIRALAX17 GM PO (08:33)
[2020-12-20] MEDS ORDERED: SENNA PLUS TAB1 EACH PO (08:33)
[2020-12-20] MEDS ORDERED: ZOFRAN ODT4 MG PO (08:34)
[2020-12-20 08:55] VITALS: BP 120/83
--- NOTE | 2020-12-20 09:16 | NUR ---
PT GIVEN DISCHARGE INFORMATION. PRESCRIPTIONS SENT OVER TO PHARMACY. MIDLINE REMOVED. PT BELONGINGS GATHERED. PT DENIED ANY QUESTIONS OR CONCERNS AT THIS TIME. HOURLY ROUNDING COMPLETED. PT LEFT VIA WHEELCHAIR WITH NURSING STAFF TO HOME.
== END 2020-12-20 09:34 | disposition home or self-care (01) | DRG 389 ==
LOC: M.ERS 11:02 → M.TBA-ER 13:46 → M.ORTHSURG 13:46
PROVIDERS: Family Medicine; Nurse Practitioner; Surgery; ADMIT Internal Medicine; ATTEND Internal Medicine
DX: K56.609 Unspecified intestinal obstruction, unspecified as to partial versus complete obstruction (principal); E44.0 Moderate protein-calorie malnutrition; Z68.1 Body mass index [BMI] 19.9 or less, adult; K59.00 Constipation, unspecified; E03.9 Hypothyroidism, unspecified; F12.90 Cannabis use, unspecified, uncomplicated; D72.829 Elevated white blood cell count, unspecified; K57.90 Diverticulosis of intestine, part unspecified, without perforation or abscess without bleeding; I10 Essential (primary) hypertension; G43.909 Migraine, unspecified, not intractable, without status migrainosus; Z20.822 Contact with and (suspected) exposure to COVID-19; Z90.49 Acquired absence of other specified parts of digestive tract; Z86.73 Personal history of transient ischemic attack (TIA), and cerebral infarction without residual deficits; Z90.710 Acquired absence of both cervix and uterus; Z79.899 Other long term (current) drug therapy; Z93.1 Gastrostomy status